=== PATIENT | female | born 2000 | race Caucasian/White ===

== ENCOUNTER 2024-06-11 15:17 | Outpatient (CLI) | payer OTHER, SELFPAY ==
[2024-06-14 04:52] LABS: HPV Source Cervix; HPV, High Risk by TMA Not Detected
== END 2024-06-11 15:18 | disposition home or self-care (01) ==
PROVIDERS: PCP Registered Nurse; Visit Provider Obstetrics & Gynecology
DX: Z12.4 Encounter for screening for malignant neoplasm of cervix (principal); Z11.51 Encounter for screening for human papillomavirus (HPV)
CPT/HCPCS: 87624; 87625; 88141; 88142

== ENCOUNTER 2025-02-16 10:47 | Outpatient (CLI) | payer OTHER, SELFPAY | END 2025-02-16 10:48 | disposition home or self-care (01) | LOC: NFLDREF 02-17 17:43 | DX: N30.01 Acute cystitis with hematuria (principal); B37.31 Acute candidiasis of vulva and vagina | CPT/HCPCS: 87086 ==